=== PATIENT | female | born 1960 | race Caucasian/White ===

== ENCOUNTER 2018-02-04 10:34 | Day surgery (SDC) | payer MEDICARE, BC, OTHER ==
[~2018-02-04 10:34] MED LIST: CEFAZOLIN 1 GM/D5W RTU 1 GM/50 ML RTUPB IV PRN
[2018-02-04] MEDS ORDERED: LIDOCAINE 2% INJ-PF (20 MG/ML) 10 ML AMPUL ONE (11:08)
[2018-02-04] MEDS ORDERED: MIDAZOLAM 2 MG/2 ML INJ ONE (11:09)
[2018-02-04] MEDS ORDERED: ONDANSETRON HCL INJ/PF 4 MG/2 ML SDV ONE (11:09)
[2018-02-04] MEDS ORDERED: PROPOFOL INJ 200 MG/20 ML VIAL IV ONE (11:09)
[2018-02-04] MEDS ORDERED: FENTANYL CITRATE INJ/PF 100 MCG/2 ML AMPUL ONE (11:09)
[2018-02-04 11:20] LABS: HEMATOCRIT 38.7 % (36.0-47.0); MEAN CORPUSCULAR HEMOGLOBIN 30.1 pg (27.0-33.4); MEAN CORPUSCULAR HGB CONC 33.6 g/dL (32.0-36.0); MEAN CORPUSCULAR VOLUME 90 fl (80-97); PLATELET COUNT 326 10^3/uL (150-450); RED BLOOD COUNT 4.32 10^6/uL (3.72-5.28); RED CELL DISTRIBUTION WIDTH 12.8 % (11.5-14.0); WHITE BLOOD COUNT 7.2 10^3/uL (4.0-10.5)
[2018-02-04 11:28] LABS: INTERNATIONAL RATION (INR) 0.84; PROTHROMBIN TIME 11.9 SEC (11.4-15.4)
[2018-02-04 11:29] LABS: PARTIAL THROMBOPLASTIN TIME 33.2 SEC (23.5-35.8)
[2018-02-04 11:30] LABS: APPEARANCE,URINE SLIGHTLY-CLOUDY; BILIRUBIN,URINE NEGATIVE (NEGATIVE); COLOR,URINE YELLOW; GLUCOSE, URINE NEGATIVE (NEGATIVE); KETONES,URINE TRACE mg/dL (NEGATIVE); LEUKOCYTE ESTERASE,URINE SMALL (NEGATIVE); NITRITE,URINE NEGATIVE (NEGATIVE); PROTEIN,URINE NEGATIVE (NEGATIVE); URINE SPECIFIC GRAVITY 1.028; UROBILINOGEN,URINE NEGATIVE mg/dL (<2.0)
[2018-02-04] MEDS ORDERED: LIDOCAINE 1% INJ-PF (10 MG/ML) 30 ML SDV ONE (12:48)
[2018-02-04] MEDS ORDERED: TRIAMCINOLONE ACETONIDE INJ 40 MG/1 ML VIAL ONE ×2 (13:29→14:26)
[2018-02-04] MEDS ORDERED: FENTANYL CITRATE INJ/PF 100 MCG/2 ML AMPUL IV PRN ×3 (13:58)
[2018-02-04] MEDS ORDERED: MEPERIDINE HCL/PF INJ 25 MG/1 ML DISP.SYRIN IV PRN (13:58)
[2018-02-04] MEDS ORDERED: ONDANSETRON HCL INJ/PF 4 MG/2 ML SDV IV PRN ×2 (13:58→15:17)
[2018-02-04] MEDS ORDERED: DIPHENHYDRAMINE HCL 50 MG/ML VIAL IV PRN (13:58)
[2018-02-04] MEDS ORDERED: MORPHINE SULFATE 10 MG/ML INJ IV PRN (13:58)
[2018-02-04] MEDS ORDERED: PROMETHAZINE HCL INJ 25 MG/1 ML VIAL IV PRN ×2 (13:58)
--- NOTE | 2018-02-04 15:07 | RADIOLOGY REPORT (SQ) ---
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 FLUOROSCOPY TIME: Fluoro time 10.2 minutes. 20 images saved to PACS. TECHNIQUE: Intra-operative images acquired during surgical procedure to evaluate progress. NUMBER OF IMAGES: 20 LIMITATIONS: None. FINDINGS: Lumbar puncture was apparently performed with instillation of 9 cc Iso 200. Please correl ate with operative note. IMPRESSION: IMAGE(S) OBTAINED DURING PROCEDURE. COMMENT: Quality ID [id number]: Final reports for procedures using fluoroscopy that document radiation exp osure indices, or exposure time and number of fluorographic images (if radiation exposure indices are not available) Please consult full operative report of the attending physician for description of the procedure. TECHNICAL DOCUMENTATION: JOB ID: [id number] [employer]- All Rights Reserved Reading location - IP/workstation name: [email or web address]
--- NOTE | 2018-02-04 15:07 | RADIOLOGY REPORT (SQ) ---
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 FLUOROSCOPY TIME: Fluoro time 10.2 minutes. 20 images saved to PACS. TECHNIQUE: Intra-operative images acquired during surgical procedure to evaluate progress. NUMBER OF IMAGES: 20 LIMITATIONS: None. FINDINGS: Lumbar puncture was apparently performed with instillation of 9 cc Iso 200. Please correl ate with operative note. IMPRESSION: IMAGE(S) OBTAINED DURING PROCEDURE. COMMENT: Quality ID [id number]: Final reports for procedures using fluoroscopy that document radiation exp osure indices, or exposure time and number of fluorographic images (if radiation exposure indices are not available) Please consult full operative report of the attending physician for description of the procedure. TECHNICAL DOCUMENTATION: JOB ID: [id number] [employer]- All Rights Reserved Reading location - IP/workstation name: [email or web address]
[2018-02-04] MEDS ORDERED: OXYCODONE HCL IR 5 MG TABLET PO PRN (15:16)
--- NOTE | 2018-02-04 15:21 | OPERATIVE REPORT E ---
Operative Report NAME: STEPHANIE SANDOVAL : 1960 AGE: 57Y DATE OF SURGERY: 02/04/2018 ROOM: PREOPERATIVE DIAGNOSIS: Lumbar spinal stenosis with neurogenic claudication. POSTOPERATIVE DIAGNOSIS: Lumbar spinal stenosis with neurogenic claudication. OPERATION: 1. Minimally invasive lumbar decompression bilaterally at L4-5. 2. Epidural steroid injection at L4-5 with 80 mg of Kenalog. COMPLICATIONS: None. SURGEON: RUTHY YIP M.D. ANESTHESIA: Local with MAC. PREOPERATIVE ANTIBIOTICS: One gram Ancef given prior to incision. FLUIDS: 500 mL of balance Crystalloid solution. ESTIMATED BLOOD LOSS: Minimal. OPERATIVE INDICATIONS: The patient is a 57-year-old female with past medical history of lumbar spinal stenosis and neurogenic claudication. She has had substantial progression of symptoms and was found to have spinal stenosis at the L4-5 level with substantial ligamentous hypertrophy. Patient was determined to be a good candidate for minimally invasive lumbar decompression. Risks and benefits were discussed in detail including but not limited to bleeding, bruising, infection, injury to nerves, arteries, veins, loss of bowel or bladder function, paralysis and potentially even . The patient agreed to understand. OPERATIVE REPORT: The patient was accompanied by anesthesia staff to the operative suite where she was placed in prone position. All pressure points were checked and padded. Standard ASA lines and monitors were applied. The patient was prepped in sterile fashion using chlorhexidine gluconate solution and was allowed an appropriate time to dry. The patient was then draped using an [place] drape. Appropriate timeout procedure was performed with the operative staff as per [facility] standards. The C-arm was draped into the field to provide fluoroscopic guidance. The L4-5 interspace was marked and the skin overlying the midline was anesthetized with 1% lidocaine. Subsequently, a 17-gauge Tuohy epidural needle was advanced in intermittent AP and oblique angulations to the posterior epidural space using a loss of resistance technique to normal saline. Loss of resistance was obtained to 5-cm. Once needle was in place in the midline, an epidurogram was obtained using Isovue contrast at a volume of 4 mL. There was no limitation to any cephalad spread at the L4-5 level with injection. At this point, attention was turned to the midline again. An incision site was planned 2 vertebral segments down from the L4-5 interspace, just to the left. Skin was anesthetized with 1% buffered lidocaine and deeper tissues were infiltrated using a 3.5-inch 25-gauge spinal needle with 1% lidocaine. Subsequently a trocar provided by the [employer] kit was advanced and entered in AP and oblique fluoroscopic guidance to the L4-5 interspace. The stabilizer was placed and depth gauge was set at 15 mm. A rongeur was advanced through the trocar using continuous fluoroscopic guidance to take bites of bone and ligament through the rongeur. This was done on the inferior and superior lamina. Once this was completed, a tissue sculptor was utilized as provider by the [employer] kit to take out further bits of ligamentum. Following this, injection of Omnipaque dye revealed improved cephalad spread. Attention was turned to the opposite side where the procedure was performed in the exact same fashion. Marked improvement in epidural spread. Posterior epidural spread of contrast agent was noted at the end of the procedure. The trocars were removed, skin cleansed, and Steri-Strips applied. Then, 80 mg of Kenalog was injected through the Touhy needle in the midline and this was removed as well. The patient tolerated the procedure well and was accompanied with anesthesia staff to the Postanesthesia Recovery Unit in stable condition. She will be discharged to home and will have follow-up in 24 hours. DICTATING PHYSICIAN: RUTHY YIP M.D. [id number] PHY#: [id number] ID: [id number] JOB#: [id number] ACCT: [id number] cc:RUTHY YIP M.D. > MTDD
[2018-02-04 16:44] VITALS: BP 115/78
== END 2018-02-04 16:35 | disposition home or self-care (01) ==
LOC: OROUT 10:34
PROVIDERS: ATTEND Pain Medicine Interventional Pain Medicine
DX: M48.062 Spinal stenosis, lumbar region with neurogenic claudication (principal); Z00.6 Encounter for examination for normal comparison and control in clinical research program; M43.17 Spondylolisthesis, lumbosacral region; M54.16 Radiculopathy, lumbar region; M51.34 Other intervertebral disc degeneration, thoracic region; R23.3 Spontaneous ecchymoses; R03.0 Elevated blood-pressure reading, without diagnosis of hypertension; M50.30 Other cervical disc degeneration, unspecified cervical region; M51.36 Other intervertebral disc degeneration, lumbar region; F32.9 Major depressive disorder, single episode, unspecified; F45.42 Pain disorder with related psychological factors; Z79.899 Other long term (current) drug therapy; Z79.1 Long term (current) use of non-steroidal anti-inflammatories (NSAID); Z88.1 Allergy status to other antibiotic agents
CPT/HCPCS: 0275T; 36415; 85027; 85610; 85730; 81001; 72100; Q9966; J2250; J0690; J3010; J3490 ×3; J2405; J2704; 630

== ENCOUNTER → 2020-02-23 | Day surgery (SDC) | payer MEDICARE, BC ==
[~2020-02-23] MED LIST changes: +BUPIVACAINE HCL 0.5 % INJ/PF 30 ML SDV ONE; -CEFAZOLIN 1 GM/D5W RTU 1 GM/50 ML RTUPB IV PRN; +LIDOCAINE 1% INJ-PF (10 MG/ML) 30 ML SDV ONE; +LIDOCAINE 2% INJ (20 MG/ML) 20 ML MDV ONE; +METHYLPREDNISOLONE ACETATE INJ 40 MG/1 ML ML ONE
--- NOTE | 2020-02-23 11:45 | Operative Report ---
PREOPERATIVE DIAGNOSIS: Lumbar Spondylosis POSTOPERATIVE DIAGNOSIS: Lumbar Spondylosis PROCEDURE: Radiofrequency Ablation of medial branches - RT L3 L4 dorsal primary ramus of L5. LT L3 L4 Dorsal primary ramus of L5. DATE OF PROCEDURE: February 23, 2020 ANESTHESIA: Local COMPLICATIONS: None CONSENT: A full description of the procedure was provided including benefits as well as possible complications. All questions were answered and informed consent was given and signed. ASA guidelines for fasting were verified prior to sedation. PROCEDURE IN DETAIL The patient was brought into the fluoroscopy suite and positioned into the prone position on the fluoroscopy table and allowed to adjust to a position of comfort. A grounding pad was placed on the left thigh. The lumbar region was widely prepped with a chloraprep solution, allowed to air dry and draped in standard sterile surgical fashion. Local anesthesia was provided by 1 mL of 1 % lidocaine delivered with a 25 g needle. A 17g 75mm radiofrequency introducer needle was placed to the planned anatomic targets guided with intermittent fluoroscopy with a perpendicular approach to terminally place at the junction of the superior articular process and the transverse process of the left L4 L5 and the base of the sacral ala on the left for the L5 medial branch nerve. The stylets were removed and radiofrequency probes with a 4mm active tip were then inserted. Needle tip position of the probes was verified in the AP, oblique, and lateral views. At each site, the medial branch nerve was stimulated at 2 Hz to a maximum 1-2 volts determined to finalize safe needle and electrode placement. The patient was awake and responsive during this portion of the procedure. Each target was anesthetized with 1-2 mL of 2 % lidocaine for anesthesia for lesioning and then each target was lesioned at 80 degrees Celsius for 2 minutes and 30 seconds. Tissue impedences were noted to be between 250 and 500 Ohms. Electrodes were then wi thdrawn and 1 mL of a solution containing 0.25% bupivacaine with 40 mg of Depo- Medrol was infiltrated at each site. Then needles were removed. Attention was turned to the opposite side where the procedure was performed in identical fashion. Bandages were placed over the needle placement sites, the patient then returned to the supine position on a stretcher and transported to the recovery room without hemodynamic, neurologic, or allergic reactions. Fluoroscopic images were printed for hard copy recording and digitally archived. POST PROCEDURE EVALUATION: The patient was comfortable in the recovery room. The patient is aware that pain may worsen before remitting and 4 - 6 weeks may be required prior to the onset of pain relief. IMPRESSION: 1. Technically successful bilateral L3 L4 L5 medial branch radiofrequency neurotomy for denervation without complication. 2. RTC in three weeks. 3. Estimated Blood Loss: minimal
== END ==
LOC: RAD 10:36
PROVIDERS: ATTEND Pain Medicine Interventional Pain Medicine
DX: M54.2 Cervicalgia (principal); M54.12 Radiculopathy, cervical region; M47.816 Spondylosis without myelopathy or radiculopathy, lumbar region
CPT/HCPCS: 64635; 64636; J3490 ×3; J1030